=== PATIENT | female | born 1990 | race Caucasian/White ===

== ENCOUNTER → 2022-01-12 07:50 | Outpatient (CLI) | payer BC, SELFPAY ==
--- NOTE | 2022-01-12 07:15 | DI.RAD_ITS ---
Exam(s) XR ANKLE LT COMPLETE EXAM: XR ANKLE LT COMPLETE CLINICAL HISTORY: ankle pain, left,m25.572 TECHNIQUE: 2D digital imaging was performed. Three views. COMPARISON: No exams were available for comparison FINDINGS: BONES: No acute fracture is present. No bony destructive lesion is seen. Bone island lateral malleolu s. JOINTS:The ankle mortise is normally aligned. SOFT TISSUE: Swelling around lateral malleolus. IMPRESSION: Lateral soft tissue swelling. No evidence of fracture.. DATA REPOSITORY: RADIATION DOSE DELIVERED:
== END ==
PROVIDERS: PCP Internal Medicine; Visit Provider Physician Assistant
DX: M25.572 Pain in left ankle and joints of left foot (principal); M79.89 Other specified soft tissue disorders
CPT/HCPCS: 73610

== ENCOUNTER 2023-11-24 19:12 | Outpatient (REF) | payer BC, SELFPAY | END 2023-11-24 19:13 | disposition home or self-care (01) | LOC: LBN 19:12 | PROVIDERS: PCP Internal Medicine; Visit Provider Nurse Practitioner Family | DX: R21 Rash and other nonspecific skin eruption (principal) | CPT/HCPCS: 86787 ==

== ENCOUNTER 2024-02-20 18:14 | Outpatient (REF) | payer MEDICAID, SELFPAY ==
[2024-02-20 17:48] LABS: TSH (W/Ref FT4) 0.73 uIU/mL (0.36-3.74)
== END 2024-02-20 18:15 | disposition home or self-care (01) ==
LOC: NCHCN 18:14
PROVIDERS: PCP Internal Medicine; Visit Provider Student in an Organized Health Care Education/Training Program
DX: F41.9 Anxiety disorder, unspecified (principal)
CPT/HCPCS: 84443